=== PATIENT | female | born 1995 | race Caucasian/White ===

== ENCOUNTER 2023-11-11 12:41 | Emergency (ER) | payer BC ==
[2023-11-11 12:46] VITALS: RESP 18
--- NOTE | 2023-11-11 13:00 | ED ---
Female Urogenital HPI - General Chief complaint: Vaginal Bleeding Stated complaint: vaginal bleeding/5wks Time Seen by Provider: 11/11/23 12:58 Source: patient, RN notes reviewed Mode of arrival: ambulatory Limitations: no limitations - History of Present Illness Initial comments: 28-year-old female G2, P1 at approximately 5 weeks gestation presenting with vaginal bleeding x 1 day. States last night she noticed blood on the toilet paper when she wiped. This morning, bleeding has become heavier. Denies any abdominal cramping or pain. Denies fever, chills, nausea, vomiting, syncope, lightheadedness, urinary symptoms. She has not had an ultrasound for this . - Related Data Allergies Allergy/AdvReac Type Severity Reaction Status Date / Time cefaclor [From Ceclor] Allergy Rash/Hives Verified 11/11/23 12:46 Penicillins Allergy Rash/Hives Verified 11/11/23 12:46 Sulfa (Sulfonamide Allergy Rash/Hives Verified 11/11/23 12:46 Antibiotics) Review of Systems ROS Statement: Those systems with pertinent positive or pertinent negative responses have been documented in the HPI. ROS Other: All systems not noted in ROS Statement are negative. Past Medical History Past Medical History: No Reported History Past Surgical History: No Surgical Hx Reported Past Psychological History: No Psychological Hx Reported Smoking Status: Never smoker Past Alcohol Use History: None Reported Past Drug Use History: None Reported General Exam Limitations: no limitations General appearance: alert, in no apparent distress Head exam: Present: atraumatic, normocephalic, normal inspection Eye exam: Present: normal appearance, PERRL, EOMI. Absent: scleral icterus, conjunctival injection, periorbital swelling ENT exam: Present: normal exam, mucous membranes moist Neck exam: Present: normal inspection. Absent: tenderness, meningismus, lymphadenopathy Respiratory exam: Present: normal lung sounds bilaterally. Absent: respiratory distress, wheezes, rales, rhonchi, stridor Cardiovascular Exam: Present: regular rate, normal rhythm, normal heart sounds. Absent: systolic murmur, diastolic murmur, rubs, gallop, clicks GI/Abdominal exam: Present: soft, normal bowel sounds. Absent: distended, tenderness, guarding, rebound, rigid Back exam: Present: normal inspection. Absent: CVA tenderness (R), CVA tenderness (L) Neurological exam: Present: alert, oriented X3 Psychiatric exam: Present: normal affect, normal mood Skin exam: Present: warm, dry, intact, normal color. Absent: rash Course Vital Signs 11/11/23 12:44 Temperature 97.8 F Pulse Rate 96 Respiratory 18 Rate Blood Pressure 137/85 O2 Sat by Pulse 99 Oximetry Medical Decision Making - Medical Decision Making Was pt. sent in by a medical professional or institution (, PA, CUSTOMER CARE ASSOCIATE, urgent care, hospital, or usp...) When possible be specific @ -No Did you speak to anyone other than the patient for history (EMS, parent, family, police, friend...)? What history was obtained from this source @ -No Did you review nursing and triage notes (agree or disagree)? Why? @ -I reviewed and agree with nursing and triage notes Were old charts reviewed (outside hosp., previous admission, EMS record, old EKG, old radiological studies, urgent care reports/EKG's, usp records)? Report findings @ -No old charts were reviewed Differential Diagnosis (chest pain, altered mental status, abdominal pain women, abdominal pain men, vaginal bleeding, weakness, fever, dyspnea, syncope, headache, dizziness, GI bleed, back pain, seizure, CVA, palpatations, mental health, musculoskeletal)? @ -Differential Vaginal Bleeding: Spontaneous , threatened , molar , ectopic , bloody show, incompetent cervix, abruptioplacenta, placenta previa, uterine rupture, dysfunctional uterine bleeding, hemorrhage, uterine fibroids, this is not meant to be an all-inclusive list. EKG interpreted by me (3pts min.). @ -None X-rays interpreted by me (1pt min.). @ -None done CT interpreted by me (1pt min.). @ -None done U/S interpreted by me (1pt. min.). @ -Ultrasound reveals no IUP, no sign of intrauterine or extrauterine What testing was considered but not performed or refused? (CT, X-rays, U/S, labs)? Why? @ -None What meds were considered but not given or refused? Why? @ -None Did you discuss the management of the patient with other professionals (professionals i.e. , SUBHA, CUSTOMER CARE ASSOCIATE, lab, RT, psych nurse, social sciences chair, cigar brander, teacher, chief resource officer, case fitter)? Give summary @ -No Was smoking cessation discussed for >3mins.? @ -No Was critical care preformed (if so, how long)? @ -No Were there social determinants of health that impacted care today? How? (Homelessness, low income, unemployed, alcoholism, drug addiction, transportation, low edu. Level, literacy, decrease access to med. care, long term, rehab)? @ -No Was there de-escalation of care discussed even if they declined (Discuss DNR or withdrawal of care, Hospice)? DNR status @ -No What co-morbidities impacted this encounter? (DM, HTN, Smoking, COPD, CAD, Cancer, CVA, ARF, Chemo, Hep., AIDS, mental health diagnosis, sleep apnea, morbid obesity)? @ -None Was patient admitted / discharged? Hospital course, mention meds given and route, prescriptions, significant lab abnormalities, going to OR and other pertinent info. @ -Patient was discharged. This is a 28-year-old female at approximately 5 weeks gestation presenting for vaginal bleeding x 1 day. Vital signs are within normal limits, no acute distress. Abdomen is soft and nontender. Laboratory studies including CBC, CMP, lactic acid unremarkable. Hemoglobin stable at 13.9. hCG levels are 3.6. Ultrasound revealed no IUP, no evidence of intrauter ine or extrauterine . Urinalysis revealed moderate blood, negative bacteria. RhoGAM not indicated due to blood type is O+. Results discussed with patient. Explained that this is a likely spontaneous miscarriage, however patient must follow-up with OB to trend beta-hCG levels down to 0. Patient is agreeable to plan. Return precautions discussed. Case was discussed with my ED attending Dr. Bowser. Patient discharged in stable condition. Undiagnosed new problem with uncertain prognosis? @ -No Drug Therapy requiring intensive monitoring for toxicity (Heparin, Nitro, Insulin, Cardizem)? @ -No Were any procedures done? @ -No Diagnosis/symptom? @ -Spontaneous Acute, or Chronic, or Acute on Chronic? @ -Acute Uncomplicated (without systemic symptoms) or Complicated (systemic symptoms)? @ -Uncomplicated Side effects of treatment? @ -No Exacerbation, Progression, or Severe Exacerbation? @ -No Poses a threat to life or bodily function? How? (Chest pain, USA, DE, pneumonia, PE, COPD, DKA, ARF, appy, cholecystitis, CVA, Diverticulitis, Homicidal, Suicidal, threat to staff... and all critical care pts) @ -Not at this time - Lab Data Result diagrams: 11/11/23 13:21 11/11/23 13:21 Lab Results 11/11/23 11/11/23 11/11/23 Range/Units 13:15 13:21 13:21 WBC 8.1 (3.8-10.6) k/uL RBC 4.59 (3.80-5.40) m/uL Hgb 13.9 (11.4-16.0) gm/dL Hct 40.8 (34.0-46.0) % MCV 89.0 (80.0-100.0) fL MCH 30.2 (25.0-35.0) pg MCHC 34.0 (31.0-37.0) g/dL RDW 11.5 (11.5-15.5) % Plt Count 226 (150-450) k/uL MPV 8.5 Neutrophils % 62 % Lymphocytes % 28 % Monocytes % 4 % Eosinophils % 4 % Basophils % 1 % Neutrophils # 5.0 (1.3-7.7) k/uL Lymphocytes # 2.2 (1.0-4.8) k/uL Monocytes # 0.4 (0-1.0) k/uL Eosinophils # 0.3 (0-0.7) k/uL Basophils # 0.0 (0-0.2) k/uL Sodium (137-145) mmol/L Potassium (3.5-5.1) mmol/L Chloride (98-107) mmol/L Carbon Dioxide (22-30) mmol/L Anion Gap mmol/L BUN (7-17) mg/dL Creatinine (0.52-1.04) mg/dL Est GFR (CKD-EPI)AfAm (>60 ml/min/1.73 sqM) Est GFR (CKD-EPI)NonAf (>60 ml/min/1.73 sqM) Glucose (74-99) mg/dL Plasma Lactic Acid En (0.7-2.0) mmol/L Calcium (8.4-10.2) mg/dL Total Bilirubin (0.2-1.3) mg/dL AST (14-36) U/L ALT (4-34) U/L Alkaline Phosphatase (38-126) U/L Total Protein (6.3-8.2) g/dL Albumin (3.5-5.0) g/dL HCG, Quant mIU/mL Urine Color Colorless Urine Appearance Clear (Clear) Urine pH 6.5 (5.0-8.0) Ur Specific [place] 1.017 (1.001-1.035) Urine Protein Negative (Negative) Urine Glucose (UA) Negative (Negative) Urine Ketones Negative (Negative) Urine Blood Moderate H (Negative) Urine Nitrite Negative (Negative) Urine Bilirubin Negative (Negative) Urine Urobilinogen <2.0 (<2.0) mg/dL Ur Leukocyte Esterase Negative (Negative) Urine RBC 1 (0-5) /hpf Urine WBC 3 (0-5) /hpf Ur Squamous Epith Cells 1 (0-4) /hpf Urine Mucus Rare H (None) /hpf Blood Type O Positive Blood Type Recheck No Previous Record Bld Type Recheck Status [facility] ONLY 11/11/23 11/11/23 Range/Units 13:21 13:21 WBC (3.8-10.6) k/uL RBC (3.80-5.40) m/uL Hgb (11.4-16.0) gm/dL Hct (34.0-46.0) % MCV (80.0-100.0) fL MCH (25.0-35.0) pg MCHC (31.0-37.0) g/dL RDW (11.5-15.5) % Plt Count (150-450) k/uL MPV Neutrophils % % Lymphocytes % % Monocytes % % Eosinophils % % Basophils % % Neutrophils # (1.3-7.7) k/uL Lymphocytes # (1.0-4.8) k/uL Monocytes # (0-1.0) k/uL Eosinophils # (0-0.7) k/uL Basophils # (0-0.2) k/uL Sodium 139 (137-145) mmol/L Potassium 3.9 (3.5-5.1) mmol/L Chloride 105 (98-107) mmol/L Carbon Dioxide 26 (22-30) mmol/L Anion Gap 8 mmol/L BUN 12 (7-17) mg/dL Creatinine 0.68 (0.52-1.04) mg/dL Est GFR (CKD-EPI)AfAm >90 (>60 ml/min/1.73 sqM) Est GFR (CKD-EPI)NonAf >90 (>60 ml/min/1.73 sqM) Glucose 86 (74-99) mg/dL Plasma Lactic Acid En 1.0 (0.7-2.0) mmol/L Calcium 9.4 (8.4-10.2) mg/dL Total Bilirubin 1.1 (0.2-1.3) mg/dL AST 21 (14-36) U/L ALT 10 (4-34) U/L Alkaline Phosphatase 43 (38-126) U/L Total Protein 6.7 (6.3-8.2) g/dL Albumin 4.2 (3.5-5.0) g/dL HCG, Quant 3.6 mIU/mL Urine Color Urine Appearance (Clear) Urine pH (5.0-8.0) Ur Specific [place] (1.001-1.035) Urine Protein (Negative) Urine Glucose (UA) (Negative) Urine Ketones (Negative) Urine Blood (Negative) Urine Nitrite (Negative) Urine Bilirubin (Negative) Urine Urobilinogen (<2.0) mg/dL Ur Leukocyte Esterase (Negative) Urine RBC (0-5) /hpf Urine WBC (0-5) /hpf Ur Squamous Epith Cells (0-4) /hpf Urine Mucus (None) /hpf Blood Type Blood Type Recheck Bld Type Recheck Status Disposition Clinical Impression: Spontaneous Disposition: HOME SELF-CARE Condition: Stable Instructions (If sedation given, give patient instructions): Miscarriage (ED) Additional Instructions: Please follow-up with OB in 2 days for repeat hCG levels. Please return to the Emergency Department if symptoms worsen or any other concerns. Is patient prescribed a controlled substance at d/c from ED?: No Referrals: Nonstaff,Physician [Primary Care Provider] - 1-2 days Time of Disposition: 15:51
[2023-11-11 13:39] LABS: Basophils % (A) 1 %; Eosinophils # (A) 0.3 k/uL (0-0.7); Eosinophils % (A) 4 %; HCT 40.8 % (34.0-46.0); HGB 13.9 gm/dL (11.4-16.0); Lymphocytes # (A) 2.2 k/uL (1.0-4.8); Lymphocytes % (A) 28 %; MCH 30.2 pg (25.0-35.0); Mean Platelet Volume 8.5; Monocytes # (A) 0.4 k/uL (0-1.0); Monocytes % (A) 4 %; Neutrophils % (A) 62 %; Platelet Count 226 k/uL (150-450); RBC 4.59 m/uL (3.80-5.40); RDW 11.5 % (11.5-15.5); WBC 8.1 k/uL (3.8-10.6)
[2023-11-11 13:49] LABS: Appearance,Urine Clear (Clear); Bilirubin,Urine Negative (Negative); Blood,Urine Moderate (Negative); Color,Urine Colorless; Glucose,Urine (UA) Negative (Negative); Ketones,Urine Negative (Negative); Leukocyte Esterase,Urine Negative (Negative); Mucus,Urine Rare /hpf; Nitrite,Urine Negative (Negative); PH, Urine 6.5 (5.0-8.0); Protein,Urine Negative (Negative); RBC,Urine 1 /hpf (0-5); Specific Gravity,Urine 1.017 (1.001-1.035); Squamous Epithelial Cell,Urine 1 /hpf (0-4); Urobilinogen,Urine <2.0 mg/dL (<2.0); WBC,Urine 3 /hpf (0-5)
[2023-11-11 13:51] LABS: ALT 10 U/L (4-34); AST 21 U/L (14-36); African American GFR (CKD) >90 (>60 ml/min/1.73 sqM); Albumin 4.2 g/dL (3.5-5.0); Alkaline Phosphatase 43 U/L (38-126); Anion Gap 8 mmol/L; Blood Urea Nitrogen 12 mg/dL (7-17); Calcium 9.4 mg/dL (8.4-10.2); Carbon Dioxide 26 mmol/L (22-30); Chloride 105 mmol/L (98-107); Glucose 86 mg/dL (74-99); Non-African American GFR(CKD) >90 (>60 ml/min/1.73 sqM); Potassium 3.9 mmol/L (3.5-5.1); Sodium 139 mmol/L (137-145); Total Bilirubin 1.1 mg/dL (0.2-1.3); Total Protein 6.7 g/dL (6.3-8.2)
[2023-11-11 14:06] LABS: HCG,Quantitative Serum 3.6 mIU/mL
--- NOTE | 2023-11-11 15:38 | US ---
EXAMINATION TYPE: Ultrasound OB <= 14 weeks fetus DATE OF EXAM: 11/11/2023 2:32 PM COMPARISON: NONE CLINICAL INDICATION: Female, 28 years old with history of vaginal bleeding in ; vaginal blee ding for 1 day EXAM PERFORMED: Transabdominal (TA) EXAM MEASUREMENTS: GESTATIONAL AGE / DATING Physician Established: Not yet established Dates by LMP: (5 weeks/6 days) EDC: 07/07/24 Dates by First Scan: No previous this is first scan Dates by Current Scan for: No IUP seen at this time MATERNAL ANATOMY Uterus: 9.9 x 4.6 x 5.9cm Right Ovary: 3.0 x 1.6 x 2.0cm Left Ovary: 4.1 x 2.1 x 2.1cm Post CDS / Adnexa: small amount of free fluid posterior cul-de-sac Presence of free fluid: yes Presence of corpus luteal cyst: no Presence of subchorionic bleed: no GESTATION / SURVEY IUP: No IUP seen at this time Date of LMP: 10/01/23 Beta HcG (if available): 3.6 IMPRESSION: 1. Unremarkable exam, without evidence of intrauterine or extrauterine . 2. Recommend follow-up of serial serum beta-hCG levels, and ultrasound/s as needed.
[2023-11-11 17:16] VITALS: BP 117/74; PULSE 70; TEMP 99.2
== END 2023-11-11 16:15 | disposition home or self-care (01) ==
LOC: EC 12:41
CPT/HCPCS: 36415; 76801; 80053; 81001; 83605; 84702; 85025; 86900; 86901; 99284